=== PATIENT | male | born 1995 | race Caucasian/White ===

== ENCOUNTER 2020-08-12 15:05 | Emergency (ER) | payer OTHER ==
[~2020-08-12] VITALS: Ht 185.4 cm; Wt 116.7 kg
--- NOTE | 2020-08-12 15:33 | NUR ---
PATIENT WALKED BACK FROM TRIAGE WITH CHIEF C/O CHEST PAIN, DRY COUGH AND SOB X1 WEEK. PATIENT REPORTS SYMPTOMS HAVE GOTTEN WORSE, HAS HX OF PNA. PATIENT SEEN AT AND REFERRED TO ED TO R/O BLOOD CLOT. DENIES FEVER, N/V/D. NADN, VSS, FAMILY MEMBER AT BEDSIDE, CALL LIGHT WITHIN REACH.
[2020-08-12] MEDS ORDERED: SODIUM CHLORIDE FLUSH 10ML SYR IVF ONE (16:00)
[2020-08-12 16:17] LABS: BASOPHILS % (AUTO) 1 % (0-1); EOSINOPHILS % (AUTO) 1 % (1-7); LYMPHOCYTES % (AUTO) 18 % (22-44); MD NO; MEAN CORPUSCULAR HGB CONC 35.1 g/dL (33.2-36.2); MEAN PLATELET VOLUME 7.3 fL (7.4-10.4); MONOCYTES % (AUTO) 8 % (2-9); NEUTROPHILS % (AUTO) 73 % (42-75); PLATELET COUNT 241 x10^3/uL (130-400); RED BLOOD COUNT 5.29 x10^6/uL (4.38-5.82)
--- NOTE | 2020-08-12 16:18 | NUR ---
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 WAITING FOR CT SCAN.
[2020-08-12 16:28] LABS: ALANINE AMINOTRANSFERASE 24 U/L (12-78); ALBUMIN 4.2 g/dL (3.4-5.0); ANION GAP 5 mmol/L (5-15); CALCIUM 9.1 mg/dL (8.5-10.1); CHLORIDE 107 mmol/L (98-107); CREATININE 1.06 mg/dL (0.7-1.3)
[2020-08-12 16:33] LABS: ALKALINE PHOSPHATASE 98 U/L (45-117); BILIRUBIN,TOTAL 0.8 mg/dL (0.2-1.0); TOTAL PROTEIN 7.6 g/dL (6.4-8.2); TROPONIN I < 0.015 ng/mL (0.000-0.045)
[2020-08-12] MEDS ORDERED: OMNIPAQUE 350 MG/ML, 75ML BOTTLE ONE (16:46)
--- NOTE | 2020-08-12 17:07 | NUR ---
ERMD AT BEDSIDE TO DISCUSS POC.
[2020-08-12 17:20] VITALS: BP 122/62
--- NOTE | 2020-08-12 17:39 | NUR ---
IV removed with tip intact. Patient given discharge instructions and prescription and they have confirmed that they understand the instructions. Patient stable and ambulatory with steady gait from ED with family member.
== END 2020-08-12 17:40 | disposition home or self-care (01) ==
LOC: ED 17:05
DX: R06.00 Dyspnea, unspecified (principal); R07.89 Other chest pain; R05 Cough
CPT/HCPCS: 36415; 71275; 80053; 83880; 84484; 85025; 93005; 99285; Q9967